=== PATIENT | female | born 1995 | race Caucasian/White ===

== ENCOUNTER → 2017-10-17 | Outpatient (CLI) | payer OTHER ==
[2017-10-17 13:39] LABS: ABSOLUTE BASOPHILS 0.1 thou/uL (0.0-0.2); ABSOLUTE EOSINOPHILS 0.1 thou/uL (0.0-0.7); ABSOLUTE LYMPHOCYTES 3.1 thou/uL (0.8-5.3); ABSOLUTE MONOCYTES 0.6 thou/uL (0.0-1.2); ABSOLUTE NEUTROPHILS 3.1 thou/uL (1.6-8.1); EOSINOPHILS 1.6 %; HEMATOCRIT 41.7 % (37.0-47.0); HEMOGLOBIN 13.7 gm/dL (12.0-15.0); LYMPHOCYTES 44.5 %; MCH 27.3 pg (26.0-34.0); MCHC 32.8 g/dL (28.0-37.0); MCV 83.3 fL (80.0-100.0); MONOCYTES 8.2 %; MPV 8.2 fl. (7.2-11.1); NUCLEATED RBCS 0 /100WBC; PLATELET COUNT* 377 thou/uL (150-400); POLYS 44.7 %; RBC 5.01 mil/uL (4.20-5.00); RDW-CV 13.1 % (10.5-14.5)
[2017-10-17 13:51] LABS: ALBUMIN 3.8 g/dL (3.4-5.0); CALCIUM 9.1 mg/dL (8.5-10.1); CREATININE 0.8 mg/dL (0.6-1.3); POTASSIUM 4.1 mmol/L (3.5-5.1); TOTAL BILIRUBIN 0.4 mg/dL (<0.1-1.0); TOTAL PROTEIN 7.6 g/dL (6.4-8.2)
[2017-10-18 02:11] LABS: GLYCOHEMOGLOBIN (HGB A1C) 5.3 % (4.8-5.6)
== END ==
LOC: M.LAB 13:04
PROVIDERS: Nurse Practitioner Family
DX: R42 Dizziness and giddiness (principal); R55 Syncope and collapse

== ENCOUNTER → 2017-11-19 | Outpatient (CLI) | payer OTHER | LOC: M.MRI 11:53 | DX: S83.242A Other tear of medial meniscus, current injury, left knee, initial encounter (principal); M25.462 Effusion, left knee; X58.XXXA Exposure to other specified factors, initial encounter; Y93.89 Activity, other specified; Y92.89 Other specified places as the place of occurrence of the external cause; Y99.8 Other external cause status ==

== ENCOUNTER → 2018-07-30 | Outpatient (CLI) | payer OTHER | LOC: M.LAB 14:00 → M.CT 15:00 | DX: H53.8 Other visual disturbances (principal); R51 Headache ==

== ENCOUNTER → 2019-01-01 | Outpatient (CLI) | payer OTHER | LOC: M.ULTRA 14:29 | DX: N63.21 Unspecified lump in the left breast, upper outer quadrant (principal); R59.9 Enlarged lymph nodes, unspecified ==

== ENCOUNTER → 2019-05-13 | Outpatient (CLI) | payer OTHER | LOC: M.ULTRA 12:50 | DX: N63.42 Unspecified lump in left breast, subareolar (principal) ==

== ENCOUNTER → 2019-06-11 | Day surgery (SDC) | payer OTHER ==
[~2019-06-11] MED LIST: BCP PO; ONDANSETRON HCL4 M2 PO; OXYCODONE HCL 55 MG PO
[2019-06-11 07:12] LABS: HEMOGLOBIN 12.6 gm/dL (12.0-15.0)
--- NOTE | 2019-06-11 11:49 | OP ---
[address] [address] OPERATIVE REPORT Name: ELI SUMMERS Room: [facility].#: [id number] Admission: 06/11/19 Attend Phys: Marguerite Rosairo DO Discharge: Date of : 89 Report #: [id number] THIS REPORT FOR: //name// CC: Marguerite Betancur DATE OF SERVICE: 06/11/2019 PREOPERATIVE DIAGNOSIS: Palpable left breast mass. POSTOPERATIVE DIAGNOSIS: Palpable left breast mass. FINDINGS: In the supra-areolar area, there was an area of very dense fibrocystic breast disease. There was a small multilobular mass identified within this dense breast tissue. SURGEON: Marguerite Rosario DO [employer]: [employer] OPERATION PERFORMED: Left breast excision of mass. ANESTHESIA: LMA and local. ESTIMATED BLOOD LOSS: 3 mL. DRAINS: None. SPECIMENS: Left breast mass. COMPLICATIONS: None. CONDITION: Stable. DISPOSITION: PACU to home. INDICATIONS FOR PROCEDURE: The patient is a very pleasant 24-year-old female, who presented to my office with a complaint of an enlarging palpable mass in the left areolar area. She had undergone both mammogram and ultrasound, which unfortunately showed just very dense breast tissue. The radiologists were uncomfortable performing a needle biopsy of this area. The area was clearly palpable and different from the surrounding breast tissue and there was no correlating area of dense tissue on the right breast. She was then consented for excision of this mass. Risks discussed included bleeding, infection, pain, scar formation, need for further surgery and risks of general anesthesia. The patient understood these risks [place] [address] OPERATIVE REPORT Name: KRISTOPHERELI MADISON Room: [facility].#: [id number] Admission: 06/11/19 Attend Phys: Marguerite Rosario DO Discharge: Date of : 89 Report #: [id number] DESCRIPTION OF PROCEDURE: The patient was brought to the operating room. She was laid supine on the operating room table. SCDs were placed on bilateral lower extremities. Antibiotics were given in the perioperative period. General LMA anesthesia was induced by Anesthesia without difficulty. The left breast was prepped and draped in a standard sterile fashion. Timeout was performed to verify patient and procedure. A 20 mL of 0.5% Marcaine were injected in the periareolar area. A curvilinear periareolar incision was made with #15 blade. Cautery was used for hemostasis. Then using a combination of blunt and cautery dissection, we dissected up to the area, which was clearly palpable. When we reached this area, I did identify approximately 3 x 3 cm area of very dense fibrocystic breast disease. This area was gently elevated using a DeBakey and was completely excised using cautery. The specimen was marked in the superior and lateral direction. On further palpation, there was what felt to be a multilobular area within the dense breast tissue. This was then handed off for permanent pathology. Hemostasis was assured. Wound was irrigated. Wound was then closed in a layered fashion using deep and superficial stitches of 3-0 Vicryl in inverted interrupted fashion. Skin wound was closed with a running 4-0 Monocryl. A total of 20 mL of 0.5% Marcaine were used to anesthetize the wound. Wound was then cleansed and covered with Mastisol, Steri-Strips, 4 x 4's, and a Tegaderm. The patient was then allowed to awake from anesthesia, was extubated and transported to the recovery room with no further difficulties. Counts were correct x 2 at the conclusion of the case. <ELECTRONICALLY SIGNED> By: Marguerite Rosario DO 06/11/19 1149 [id number] Rosario DO /nt
--- NOTE | 2019-06-14 18:06 | PATH ---
[address] [place] [address] PATHOLOGY RPT PROCEDURE Name: ELI LOWE Room: [facility] M.R.#: [id number] Admission: 06/11/19 Date of : 89 Discharge: Report #: [id number] Path Case #: [id number] [facility] Accession Number: [id number] . 01 Material submitted: . breast - LEFT BREAST MASS, SHORT STITCH SUPERIOR, LONG LATERAL. Modifiers: left . 01 Clinical history: . Left breast mass. . 02 Diagnosis: Left breast mass: - Benign breast tissue with dense fibrosis and mild chronic inflammation, negative for atypia. (JOSÉ MIGUEL:sweta; 06/14/2019) [facility]BR/06/14/2019 . 02 Electronically signed: . Alfonso Hammonds MD, Pathologist NPI- [id number] . 01 Gross description: . Received in formalin labeled "Eli Lowe, left breast mass stitch short superior-long lateral" is an oriented breast lumpectomy specimen weighing 7 g and measuring 3.8 cm from lateral to medial, 2.3 cm from anterior to posterior, 2.3 cm from superior to inferior. The specimen is inked as follows: superior-red, inferior-blue, anterior-green, posterior-black, lateral-orange, medial-yellow. The specimen is sectioned from lateral to medial into 11 slices. A definitive mass is not grossly identified. The cut surface is 90% dense sherman-white and fibrous and 10% yellow and lobulated. A biopsy clip is not identified. The specimen is submitted entirely as follows: A1 slice 1, lateral margin, perpendicular sections A2-A10 slices 2-10, submitted sequentially A11 slice 11, medial margin, perpendicular sections . The specimen is removed from the patient at 0900 and placed in formalin at an unspecified time on June 11, 2019. The specimen is removed from formalin at 1850 on June 13, 2019. ([facility] 06/13/2019) SYC/SYC . 02 Pathologist provided ICD-10: N60.32, N61.0 . 02 CPT . 071692 Specimen Comment: A courtesy [place] [address] PATHOLOGY RPT PROCEDURE Name: ELI LOWE Room: [facility]#: [id number] Admission: 06/11/19 Date of : 89 Discharge: Report #: [id number] Path Case #: [id number] Specimen Comment: [phone], . Specimen Comment: Report sent to / DR MCKEON Performed at: [address], [place], [place] [id number] MD Vipul Hoff MD Phone: [phone] Performed at: 02 [facility] [address], [place], [place] [id number] MD Alfonso Hammonds MD Phone: [phone]
== END | disposition home or self-care (01) ==
LOC: M.SUR 06:36
PROVIDERS: Surgery
DX: N61.0 Mastitis without abscess (principal); N60.32 Fibrosclerosis of left breast; Z91.040 Latex allergy status; Z88.8 Allergy status to other drugs, medicaments and biological substances; Z79.899 Other long term (current) drug therapy; Z98.890 Other specified postprocedural states